=== PATIENT | male | born 1965 | race Caucasian/White ===

== ENCOUNTER 2018-03-03 06:49 | Day surgery (SDC) | payer OTHER ==
[2018-03-03] MEDS ORDERED: LIDOCAINE 2% (SDV) 5 ML INJ (08:43)
[2018-03-03] MEDS ORDERED: PROPOFOL 60 ML (08:43)
[2018-03-03] MEDS ORDERED: FENTAnyl 50 MCG/ML VIAL IV (09:30)
[2018-03-03] MEDS ORDERED: METOCLOPRAMIDE 10 MG INJ IV (09:30)
[2018-03-03] MEDS ORDERED: ONDANSETRON 4 MG INJ IV (09:30)
[2018-03-03] MEDS ORDERED: DIPHENHYDRAMINE 50 MG INJ IV (09:30)
[2018-03-03] MEDS ORDERED: MEPERIDINE 25 MG INJ IV (09:30)
== END 2018-03-03 14:49 | disposition home or self-care (01) ==
LOC: GIL 06:49
DX: Z12.11 Encounter for screening for malignant neoplasm of colon (principal); D12.5 Benign neoplasm of sigmoid colon; K64.8 Other hemorrhoids; I10 Essential (primary) hypertension; E78.5 Hyperlipidemia, unspecified; E66.01 Morbid (severe) obesity due to excess calories; Z68.31 Body mass index [BMI] 31.0-31.9, adult
CPT/HCPCS: 45385; 88305